=== PATIENT | male | born 1960 | race Caucasian/White ===

== ENCOUNTER 2016-12-04 13:47 | Emergency (ER) | payer BC ==
[2016-12-04 13:59] VITALS: BP 130/75
--- NOTE | 2016-12-04 14:32 | UC ---
Ear Complaint HPI - HPI Summary HPI Summary: FOUR DAYS OF LEFT EAR PAIN, AFTER CLEANING EAR WITH [employer]. NO FEVER. NO NECK PAIN. SWELLING TO (TRAGUS OF) LEFT EAR. - History of Current Complaint Chief Complaint: UCEar Stated Complaint: EAR INFECTION Time Seen by Provider: 12/04/16 14:08 Hx Obtained From: Patient Onset/Duration: Gradual Onset, Lasting Days, Still Present Severity Initially: Mild Severity Currently: Moderate Associated Signs/Symptoms: Positive: Swelling @ - TRAGUS RIGHT EAR - Allergies/Home Medications Allergies/Adverse Reactions: Allergies Allergy/AdvReac Type Severity Reaction Status Date / Time No Known Allergies Allergy Verified 12/04/16 13:59 PMH/Surg Hx/FS Hx/Imm Hx Previously Healthy: Yes - Surgical History Surgical History: Yes Surgery Procedure, Year, and Place: left knee cartilage - Family History Known Family History: Positive: Cardiac Disease - Social History Occupation: Employed Full-time Lives: With Family Alcohol Use: Occasionally Substance Use Type: None Smoking Status (MU): Heavy Every Day Tobacco Smoker Amount Used/How Often: 1 PPD Cessation Counseling: Patient Advised to Stop Review of Systems Constitutional: Negative Eyes: Negative ENT: Ear Ache - RIGHT Respiratory: Negative Cardiovascular: Negative Gastrointestinal: Negative Genitourinary: Negative Motor: Negative Neurovascular: Negative Musculoskeletal: Negative Neurological: Negative Psychological: Negative All Other Systems Reviewed And Are Negative: Yes Physical Exam Triage Information Reviewed: Yes Appearance: Well-Appearing, No Pain Distress, Well-Nourished Vital Signs: Initial Vital Signs Temp 97.3 F 12/04/16 13:55 Pulse 58 12/04/16 13:55 Resp 16 12/04/16 13:55 BP 130/75 12/04/16 13:55 Pulse Ox 100 12/04/16 13:55 Vital Signs Reviewed: Yes Eye Exam: Normal ENT: Positive: Hearing grossly normal, Pharynx normal, TM bulging, TM dull, Other: - LEFT EXTERNAL AUDITORY CANAL EDEMA; TENDER LEFT TRAGUS; NO TENDERNESS AT MASTOID PROCESS Dental Exam: Normal Neck exam: Normal Neck: Positive: Supple, Nontender, No Lymphadenopathy Respiratory Exam: Normal Respiratory: Positive: Chest non-tender, Lungs clear, Normal breath sounds, No respiratory distress Cardiovascular Exam: Normal Cardiovascular: Positive: RRR, No Murmur, Pulses Normal Abdominal Exam: Normal Musculoskeletal Exam: Normal Musculoskeletal: Positive: Strength Intact Neurological Exam: Normal Psychological Exam: Normal Skin Exam: Normal Ear Complaint Course/Dx - Differential Dx/Diagnosis Differential Diagnosis/HQI/PQRI: Cellulitis, Otitis Externa, Otitis Media, Perforated TM, URI Provider Diagnoses: LEFT OTITIS EXTERNA, TRAGAL CELLULITIS Discharge - Discharge Plan Condition: Stable Disposition: HOME Prescriptions: Amoxicillin/Clavulanate TAB* [Augmentin TAB 875*] 875 mg PO BID #20 tab Neomyc/Polym/HC 1% OTIC SUSP* [Cortisporin Otic Susp 1%*] 4 drop LEFT EAR QID # 1 btl Patient Education Materials: Otitis Externa (ED), Otitis Media (ED) Referrals: Yisel Montalvo NP [Primary Care Provider] -
== END 2016-12-04 14:27 | disposition home or self-care (01) ==
LOC: UCEAST 13:47
DX: H60.92 Unspecified otitis externa, left ear (principal); H60.12 Cellulitis of left external ear; Z72.0 Tobacco use
CPT/HCPCS: 99212; G0463

== ENCOUNTER 2017-04-11 19:34 | Emergency (ER) | payer BC ==
--- NOTE | 2017-04-11 20:31 | UC ---
Ear Complaint HPI - HPI Summary HPI Summary: 56 year old male presents with left ear pain. - History of Current Complaint Stated Complaint: LEFT EAR PAIN Time Seen by Provider: 04/11/17 20:31 Hx Obtained From: Patient Onset/Duration: Sudden Onset Severity Initially: Moderate Severity Currently: Moderate Pain Scale Used: 0-10 Numeric - 3 - Allergies/Home Medications Allergies/Adverse Reactions: Allergies Allergy/AdvReac Type Severity Reaction Status Date / Time No Known Allergies Allergy Verified 04/11/17 20:48 PMH/Surg Hx/FS Hx/Imm Hx Previously Healthy: Yes - Surgical History Surgical History: Yes Surgery Procedure, Year, and Place: left knee cartilage - Family History Known Family History: Positive: Cardiac Disease - Social History Alcohol Use: Occasionally Substance Use Type: None Smoking Status (MU): Heavy Every Day Tobacco Smoker Amount Used/How Often: 1 PPD Review of Systems Constitutional: Negative Skin: Negative Eyes: Negative ENT: Ear Ache Respiratory: Negative Cardiovascular: Negative Gastrointestinal: Negative Genitourinary: Negative Motor: Negative Neurovascular: Negative Musculoskeletal: Negative Neurological: Negative Psychological: Negative Is Patient Immunocompromised?: Yes All Other Systems Reviewed And Are Negative: Yes Physical Exam Triage Information Reviewed: Yes Vital Signs Reviewed: Yes Eye Exam: Normal ENT: Positive: Other - left ear exteranl canal erythema Dental Exam: Normal Neck exam: Normal Neck: Positive: 1 Respiratory Exam: Normal Cardiovascular Exam: Normal Abdominal Exam: Normal Musculoskeletal Exam: Normal Neurological Exam: Normal Psychological Exam: Normal Skin Exam: Normal Ear Complaint Course/Dx - Differential Dx/Diagnosis Provider Diagnoses: left otits externa Discharge - Discharge Plan Condition: Stable Disposition: HOME Prescriptions: Amoxicillin/Clavulanate TAB* [Augmentin TAB 875*] 875 mg PO BID #20 tab Ciproflox/Dexameth OTIC.SUSP* [Ciprodex OTIC.SUSP*] 1 drop LEFT EAR BID #1 btl Patient Education Materials: Otitis Externa (ED) Referrals: Yisel Montalvo NP [Primary Care Provider] -
[2017-04-11 20:49] VITALS: BP 126/76
== END 2017-04-11 21:18 | disposition home or self-care (01) ==
LOC: UCCORT 19:34
DX: H60.92 Unspecified otitis externa, left ear (principal); F17.210 Nicotine dependence, cigarettes, uncomplicated
CPT/HCPCS: 99212; G0463

== ENCOUNTER 2017-05-03 16:56 | Emergency (ER) | payer BC ==
--- NOTE | 2017-05-03 17:17 | UC ---
FLU HPI - HPI Summary HPI Summary: 56 year old male presents with complains of cough , chest congestion and fever. - History of Current Complaint Stated Complaint: FLU SYMPTOMS Time Seen by Provider: 05/03/17 17:16 Hx Obtained From: Patient Onset/Duration: Sudden Onset Severity Currently: Moderate Severity Initially: Moderate Associated Signs & Symptoms: Positive: Fever - Allergy/Home Medications Allergies/Adverse Reactions: Allergies Allergy/AdvReac Type Severity Reaction Status Date / Time No Known Allergies Allergy Verified 05/03/17 17:24 PMH/Surg Hx/FS Hx/Imm Hx - Surgical History Surgical History: Yes Surgery Procedure, Year, and Place: left knee cartilage - Family History Known Family History: Positive: Cardiac Disease - Social History Alcohol Use: Occasionally Substance Use Type: None Smoking Status (MU): Heavy Every Day Tobacco Smoker Type: Cigarettes Amount Used/How Often: 1 PPD - Immunization History Most Recent Influenza Vaccination: [id number] Review of Systems Constitutional: Negative Skin: Negative Eyes: Negative ENT: Sore Throat, Nasal Discharge, Sinus Congestion, Sinus Pain/Tenderness Respiratory: Cough Cardiovascular: Negative Gastrointestinal: Negative Genitourinary: Negative Motor: Negative Neurovascular: Negative Musculoskeletal: Negative Neurological: Negative Psychological: Negative All Other Systems Reviewed And Are Negative: Yes Physical Exam Triage Information Reviewed: Yes Vital Signs Reviewed: Yes Eye Exam: Normal ENT Exam: Normal ENT: Positive: Nasal congestion, Nasal drainage, Sinus tenderness Dental Exam: Normal Neck exam: Normal Neck: Positive: 1 Respiratory: Positive: Respiratory distress, Rhonchi, Wheezing Cardiovascular Exam: Normal Abdominal Exam: Normal Musculoskeletal Exam: Normal Neurological Exam: Normal Psychological Exam: Normal Skin Exam: Normal Flu Course/Dx - Differential Dx/Diagnosis Provider Diagnoses: bronchitis. wheezing Discharge - Discharge Plan Condition: Stable Disposition: HOME Prescriptions: Albuterol HFA INHALER* [Ventolin HFA Inhaler*] 1 puff INH Q6H PRN #1 mdi PRN Reason: Wheezing Azithromyxin YEIMI (NF) [Z-Yeimi (Zithromax) 250 mg tabs #6] 2 tab PO .TODAY, THEN 1 DAILY #6 tab Guaifenesin-Codeine [Cheratussin AC] 1 teasp PO Q8H PRN #120 ml MDD 15 ML PRN Reason: Cough Methylprednisolone [Medrol Dosepak 4 MG*] 4 mg PO .SEE YEIMI INSTRUCTION #21 tab Patient Education Materials: Acute Bronchitis (ED) Referrals: Yisel Montalvo, EDUCATION AND OUTREACH COORDINATOR [Primary Care Provider] -
[2017-05-03 17:22] VITALS: BP 127/88
[2017-05-03] MEDS ORDERED: Albuterol/Ipratropium NEB.SOL* Albuterol 2.5 MG/Ipratropium 0.5 MG 3 ML INH ONE (17:29)
[2017-05-03] MEDS ORDERED: predniSONE TAB* 20 MG PO ONE (17:29)
[2017-05-03] MEDS ORDERED: Azithromycin TAB* 250 MG PO ONE (18:04)
== END 2017-05-03 18:15 | disposition home or self-care (01) ==
LOC: UCCORT 16:56
DX: J40 Bronchitis, not specified as acute or chronic (principal); R06.2 Wheezing
CPT/HCPCS: 87502; 87651; 99213; A9270-GY; G0463; J7512

== ENCOUNTER 2017-06-04 19:34 | Emergency (ER) | payer BC ==
[2017-06-04 19:40] VITALS: BP 164/96
[2017-06-04] MEDS ORDERED: Ketorolac INJ* 60 MG/2 ML VIAL IM ONE (19:50)
--- NOTE | 2017-06-04 19:59 | UC ---
Truncal Trauma HPI - HPI Summary HPI Summary: Patient fell down and hit his back on the steps, pain in the lower left ribs and shoulder. - History Of Current Complaint Chief Complaint: UCBackPain Stated Complaint: PT FELL BACK/RIB PAIN LEFT SIDE Time Seen by Provider: 06/04/17 19:46 Hx Obtained From: Patient Onset/Duration: Sudden Onset, Lasting Minutes Onset Of Pain: Immediate Severity Initially: Severe Severity Currently: Severe Mechanism Of Injury: Blunt Trauma, Fall From A Standing Position Aggravating Factor(s): Movement, Deep Breathing, Cough Alleviating factor(s): Nothing Associated Signs And Symptoms: Positive: SOB - cant take a dedp breath - Allergies/Home Medications Allergies/Adverse Reactions: Allergies Allergy/AdvReac Type Severity Reaction Status Date / Time No Known Allergies Allergy Verified 06/04/17 19:39 Home Medications: Home Medications Linagliptin-Metformin HCl [Jentadueto] 1 tab PO DAILY 06/04/17 [History Confirmed 06/04/17] Pramipexole TAB* [Mirapex TAB*] 0.5 mg PO BEDTIME 06/04/17 [History Confirmed ] Simvastatin [Zocor 40 MG (NF)] 40 mg PO QPM 06/04/17 [History Confirmed 06/04/17 ] Terbinafine HCl [Lamisil] 250 mg PO BEDTIME 06/04/17 [History Confirmed 06/04/17 ] Zolpidem TAB* [Ambien TAB*] 5 mg PO BEDTIME PRN 06/04/17 [History Confirmed ] PMH/Surg Hx/FS Hx/Imm Hx Previously Healthy: Yes - Surgical History Surgical History: Yes Surgery Procedure, Year, and Place: left knee cartilage - Family History Known Family History: Positive: Cardiac Disease - Social History Alcohol Use: Occasionally Substance Use Type: None Smoking Status (MU): Heavy Every Day Tobacco Smoker Type: Cigarettes Amount Used/How Often: 1 PPD - Immunization History Most Recent Influenza Vaccination: [id number] Review of Systems Constitutional: Negative Skin: Negative Eyes: Negative ENT: Negative Respiratory: Negative Cardiovascular: Negative Gastrointestinal: Negative Genitourinary: Negative Motor: Negative Neurovascular: Negative Musculoskeletal: Arthralgia, Decreased ROM, Edema, Myalgia Neurological: Negative Psychological: Negative Is Patient Immunocompromised?: No All Other Systems Reviewed And Are Negative: Yes Physical Exam Triage Information Reviewed: Yes Appearance: Well-Appearing, Well-Nourished, Pain Distress Vital Signs: Initial Vital Signs Temp 94.9 F 06/04/17 19:37 Pulse 65 06/04/17 19:37 Resp 18 06/04/17 19:37 BP 164/96 06/04/17 19:37 Pulse Ox 97 06/04/17 19:37 Vital Signs Reviewed: Yes Eye Exam: Normal ENT Exam: Normal Dental Exam: Normal Neck exam: Normal Respiratory Exam: Normal Respiratory: Positive: Chest non-tender, Lungs clear, Normal breath sounds Cardiovascular Exam: Normal Cardiovascular: Positive: RRR, No Murmur, Pulses Normal Abdominal Exam: Normal Abdomen Description: Positive: Nontender, No Organomegaly, Soft Bowel Sounds: Positive: Present Musculoskeletal: Positive: Strength Intact, ROM Limited @ - due to pain in truck , Edema @ - pocket of edema in the lower left ribs Neurological Exam: Normal Psychological Exam: Normal Skin Exam: Normal Truncal Trauma Course/Dx - Course Course Of Treatment: Hx obtained, exam performed ,meds reviewed, toradol given, xray obtained, fractures of the 9th 10 and 11th ribs noted. pain meds given, needs close follow up with PCP, - Differential Dx/Diagnosis Differential Diagnosis/HQI/PQRI: Chest Wall Contusion Provider Diagnoses: fracture of the left 9th 10th and 11th ribs Discharge - Discharge Plan Condition: Stable Disposition: HOME Patient Education Materials: Rib Fracture (ED) Referrals: No Primary Care Phys,NOPCP [Primary Care Provider] - Additional Instructions: 1. Take the pain medication as needed for pain 2. Ice to the area today, tomorrow start heat. 3. gentle stretch of the area multiple times a day 4. Take deep breaths frequently throughout the day. 5. Use the incentive spirometer hourly 6. If you develop any cough, SOB or respiratory issues seek medical attention.
--- NOTE | 2017-06-04 20:19 | RAD ---
HISTORY: Fall, left-sided pain COMPARISONS: None relevant VIEWS: 7, Frontal view of the chest with frontal and oblique views of the left hemithorax FINDINGS: There are minimally displaced fractures of the left ninth, 10th, and 11th ribs. There is no appreciable pneumothorax. IMPRESSION: FRACTURES OF THE LEFT NINTH, 10TH, 11TH RIBS. NO APPRECIABLE PNEUMOTHORAX.
[2017-06-04] MEDS ORDERED: HYDROcodone/ACETAMIN 5-325 MG* 1 TAB PO ONE (20:44)
== END 2017-06-04 20:59 | disposition home or self-care (01) ==
LOC: UCCORT 19:34
DX: S22.49XA Multiple fractures of ribs, unspecified side, initial encounter for closed fracture (principal); W10.9XXA Fall (on) (from) unspecified stairs and steps, initial encounter; Y93.9 Activity, unspecified; Y92.9 Unspecified place or not applicable; Z72.0 Tobacco use
CPT/HCPCS: 96372; 99212; G0463; J1885

== ENCOUNTER 2017-08-04 15:25 | Emergency (ER) | payer BC ==
[2017-08-04 17:08] VITALS: BP 142/79
--- NOTE | 2017-08-04 18:26 | UC ---
Respiratory Complaint HPI - HPI Summary HPI Summary: 57 year old male with cough for 2 weeks He is a smoker. No fever. Had recently and had neg xray but had broken rib. Had similar Sx a few months ago and did not address it and needed steroids and abx. Not at that point at this time but feels it will not go away on its own. took z pack and it worked great and requesting that at this time still smoking about 1 ppd. not using PANCHITO more than normal./ No CP. no weight loss. no night sweats. no n/v/d. No WOOTEN - History of Current Complaint Chief Complaint: UCRespiratory Stated Complaint: COUGH Time Seen by Provider: 08/04/17 18:24 Hx Obtained From: Patient Onset/Duration: Gradual Onset Timing: Constant Severity Initially: Mild Severity Currently: Moderate Pain Intensity: 0 Character: Cough: Productive Aggravating Factors: Nothing Alleviating Factors: Nothing - Allergies/Home Medications Allergies/Adverse Reactions: Allergies Allergy/AdvReac Type Severity Reaction Status Date / Time No Known Allergies Allergy Verified 08/04/17 17:08 PMH/Surg Hx/FS Hx/Imm Hx Previously Healthy: Yes Endocrine History: Diabetes, Dyslipidemia Cardiovascular History: Hypertension Respiratory History: Bronchitis GI/ History: Gastroesophageal Reflux - Surgical History Surgical History: Yes Surgery Procedure, Year, and Place: left knee cartilage - Family History Known Family History: Positive: Cardiac Disease - Social History Occupation: Employed Full-time - [employer] [place] Alcohol Use: Occasionally Substance Use Type: None Smoking Status (MU): Heavy Every Day Tobacco Smoker Type: Cigarettes Amount Used/How Often: 1 PPD Cessation Counseling: Patient Advised to Stop - Immunization History Most Recent Influenza Vaccination: [id number] Review of Systems Constitutional: Fatigue ENT: Nasal Discharge - post nasal drip Respiratory: Cough Is Patient Immunocompromised?: No All Other Systems Reviewed And Are Negative: Yes Physical Exam Triage Information Reviewed: Yes Appearance: Well-Appearing, No Pain Distress, Well-Nourished Vital Signs: Initial Vital Signs Temp 94.7 F 08/04/17 17:06 Pulse 67 08/04/17 17:06 Resp 14 08/04/17 17:06 BP 142/79 08/04/17 17:06 Pulse Ox 98 08/04/17 17:06 Vital Signs Reviewed: Yes Eye Exam: Normal ENT Exam: Normal Dental Exam: Normal Neck exam: Normal Neck: Positive: 1 Respiratory Exam: Normal Respiratory: Positive: Chest non-tender, No respiratory distress, No accessory muscle use, Wheezing - RUL mild expiratory wheeze. Negative: Respiratory distress Cardiovascular Exam: Normal Musculoskeletal Exam: Normal Neurological Exam: Normal Psychological Exam: Normal Skin Exam: Normal UC Diagnostic Evaluation - Laboratory O2 Sat by Pulse Oximetry: 98 Respiratory Course/Dx - Course Course Of Treatment: treat at this time with z pack as it worked well previously. he is aware of Se. advised o quit smoking. f/u with PCP for PFTs . - Differential Dx/Diagnosis Differential Diagnosis/HQI/PQRI: Bronchitis, Lower Resp Infection Provider Diagnoses: Bronchitis. Smoker Discharge - Sign-Out/Discharge Documenting (check all that apply): Discharge - Discharge Plan Condition: Good Disposition: HOME Prescriptions: Azithromyxin YEIMI (NF) [Z-Yeimi (Zithromax) 250 mg tabs #6] 2 tab PO .TODAY, THEN 1 DAILY #6 tab Patient Education Materials: Acute Bronchitis (ED) Referrals: Yisel Montalvo, ACCOUNT SUPPORT REP [Primary Care Provider] - 4 Days (if needed ) Additional Instructions: [place] Quitting Smoking ! - Billing Disposition and Condition Condition: GOOD Disposition: HOME
== END 2017-08-04 18:43 | disposition home or self-care (01) ==
LOC: UCCORT 15:25
DX: J40 Bronchitis, not specified as acute or chronic (principal); F17.210 Nicotine dependence, cigarettes, uncomplicated; E11.9 Type 2 diabetes mellitus without complications; I10 Essential (primary) hypertension
CPT/HCPCS: 99212; G0463

== ENCOUNTER 2018-02-21 07:01 | Emergency (ER) | payer BC ==
[2018-02-21 07:21] VITALS: BP 147/83
--- NOTE | 2018-02-21 07:31 | UC ---
Respiratory Complaint HPI - HPI Summary HPI Summary: cough x 3 days cough is productive, yellow / green sputum , worse with deep breathing , better with rest + nasal congestion , wheezing, no fever, no chills, no chest pain , no sob - History of Current Complaint Chief Complaint: UCRespiratory Stated Complaint: UPPER RESPIRATORY Time Seen by Provider: 02/21/18 07:17 Hx Obtained From: Patient Onset/Duration: Gradual Onset, Lasting Days - 3, Still Present Timing: Constant Severity Initially: Moderate Severity Currently: Moderate Pain Intensity: 0 Character: Cough: Productive Aggravating Factors: Deep Breaths Alleviating Factors: Nothing Associated Signs And Symptoms: Positive: Wheezing, URI, Nasal Congestion. Negative: Dyspnea, Fever, Chills, Pleuritic Chest Pain, Hemoptysis, Dizziness, Calf Pain, Calf Swelling, Hoarseness, Sinus Discomfort - Allergies/Home Medications Allergies/Adverse Reactions: Allergies Allergy/AdvReac Type Severity Reaction Status Date / Time No Known Allergies Allergy Verified 02/21/18 07:18 PMH/Surg Hx/FS Hx/Imm Hx Endocrine History: Diabetes - Surgical History Surgical History: Yes Surgery Procedure, Year, and Place: left knee cartilage - Family History Known Family History: Positive: Cardiac Disease - Social History Alcohol Use: Occasionally Substance Use Type: None Smoking Status (MU): Heavy Every Day Tobacco Smoker Type: Cigarettes Amount Used/How Often: 1 PPD - Immunization History Most Recent Influenza Vaccination: [id number] Review of Systems Constitutional: Negative Skin: Negative Eyes: Negative ENT: Sinus Pain/Tenderness Respiratory: Cough Cardiovascular: Negative Gastrointestinal: Negative Is Patient Immunocompromised?: No All Other Systems Reviewed And Are Negative: Yes Physical Exam Triage Information Reviewed: Yes Appearance: Well-Appearing, No Pain Distress, Well-Nourished Vital Signs: Initial Vital Signs Temp 97.7 F 02/21/18 07:13 Pulse 92 02/21/18 07:13 Resp 22 02/21/18 07:13 BP 147/83 02/21/18 07:13 Pulse Ox 95 02/21/18 07:13 Vital Signs Reviewed: Yes Eye Exam: Normal Eyes: Positive: Conjunctiva Clear ENT: Positive: Normal ENT inspection, Hearing grossly normal, Pharynx normal, Nasal drainage Neck exam: Normal Neck: Positive: Supple, Nontender, No Lymphadenopathy Respiratory: Positive: Chest non-tender, Lungs clear, Normal breath sounds, No respiratory distress, No accessory muscle use, Decreased breath sounds - right lungs, Wheezing Cardiovascular: Positive: RRR, No Murmur, Pulses Normal Abdominal Exam: Normal Skin Exam: Normal UC Diagnostic Evaluation - Laboratory O2 Sat by Pulse Oximetry: 95 Diagnostic Studies Comment: chest xray : IMPRESSION: COPD. NO ACTIVE CARDIOPULMONARY DISEASE. Respiratory Course/Dx - Differential Dx/Diagnosis Provider Diagnoses: acute bronchitis Discharge - Sign-Out/Discharge Documenting (check all that apply): Patient Departure All imaging exams completed and their final reports reviewed: Yes - Discharge Plan Condition: Stable Disposition: HOME Prescriptions: Albuterol HFA INHALER* [Ventolin HFA Inhaler*] 2 puff INH Q6H PRN #1 mdi PRN Reason: Wheezing DOXYcycline CAP(*) [DOXYcycline 100MG CAP(*)] 100 mg PO BID #20 cap predniSONE [Prednisone 20 MG TAB] 20 mg PO DAILY WITH MEAL #5 tablet Patient Education Materials: Acute Bronchitis (ED) Referrals: Yisel Montalvo ROLL ON WORKER [Primary Care Provider] - 5 Days - Billing Disposition and Condition Condition: STABLE Disposition: Home
--- NOTE | 2018-02-21 07:57 | RAD ---
HISTORY: cough COMPARISONS: June 11, 2017 VIEWS: 4: Frontal dual-energy and lateral views of the chest. FINDINGS: CARDIOMEDIASTINAL SILHOUETTE: The cardiomediastinal silhouette is normal. ELLIE: The ellie are normal. PLEURA: The costophrenic angles are sharp. No pleural abnormalities are noted. LUNG PARENCHYMA: There is hyperinflation with flattening of the diaphragm and expansion of the AP diameter of the chest. Bilateral nipple shadows are noted. ABDOMEN: The upper abdomen is clear. There is no subphrenic gas. BONES AND SOFT TISSUES: Degenerative changes are noted along the spine. OTHER: None. IMPRESSION: COPD. NO ACTIVE CARDIOPULMONARY DISEASE.
== END 2018-02-21 07:51 | disposition home or self-care (01) ==
LOC: UCCORT 07:01
DX: J20.9 Acute bronchitis, unspecified (principal); E11.9 Type 2 diabetes mellitus without complications; F17.210 Nicotine dependence, cigarettes, uncomplicated
CPT/HCPCS: 71046; 99212; G0463

== ENCOUNTER 2018-05-11 15:25 | Emergency (ER) | payer BC ==
[2018-05-11 16:23] VITALS: BP 133/77
[2018-05-11] MEDS ORDERED: Azithromycin TAB* 250 MG PO ONE (16:37)
--- NOTE | 2018-05-11 17:15 | UC ---
Respiratory Complaint HPI - HPI Summary HPI Summary: Pt presents with c/o cough and generalized malaise X 4 days. Pt has hx of bronchitis is a heavy every day smoker. - History of Current Complaint Chief Complaint: UCRespiratory Stated Complaint: COUGH Time Seen by Provider: 05/11/18 16:34 Hx Obtained From: Patient Onset/Duration: Sudden Onset, Lasting Days, Still Present, Worse Since - onset Timing: Constant Severity Initially: Mild Severity Currently: Moderate Pain Intensity: 0 Pain Scale Used: 0-10 Numeric Character: Cough: Productive Aggravating Factors: Exertion, Deep Breaths, Recumbent Position Alleviating Factors: Nothing Associated Signs And Symptoms: Positive: Wheezing, URI, Nasal Congestion - Risk Factors Pulmonary Embolism Risk Factors: Smoking Cardiac Risk Factors: Smoking Pseudomonas Risk Factors: Chronic Lung Disease Tuberculosis Risk Factors: Smoking - Allergies/Home Medications Allergies/Adverse Reactions: Allergies Allergy/AdvReac Type Severity Reaction Status Date / Time No Known Allergies Allergy Verified 02/21/18 07:18 Home Medications: Home Medications Cetirizine* [ZyrTEC 10 MG TAB*] 20 mg PO ONCE 05/11/18 [History Confirmed ] PMH/Surg Hx/FS Hx/Imm Hx Previously Healthy: Yes Cardiovascular History: Cardiac Disease Respiratory History: COPD, Asthma, Bronchitis - Surgical History Surgical History: Yes Surgery Procedure, Year, and Place: left knee cartilage - Family History Known Family History: Positive: Cardiac Disease - Social History Occupation: Employed Full-time Lives: With Family Alcohol Use: Occasionally Substance Use Type: None Smoking Status (MU): Heavy Every Day Tobacco Smoker Type: Cigarettes Amount Used/How Often: 1 PPD Have You Smoked in the Last Year: Yes - Immunization History Most Recent Influenza Vaccination: 1826-2983 Vaccination Up to Date: Yes Review of Systems All Other Systems Reviewed And Are Negative: Yes Constitutional: Positive: Fatigue Skin: Positive: Negative Eyes: Positive: Negative ENT: Positive: Nasal Discharge, Sinus Congestion Respiratory: Positive: Shortness Of Breath, Cough Cardiovascular: Positive: Negative Gastrointestinal: Positive: Negative Genitourinary: Positive: Negative Motor: Positive: Negative Neurovascular: Positive: Negative Musculoskeletal: Positive: Negative Neurological: Positive: Negative Psychological: Positive: Negative Is Patient Immunocompromised?: No Physical Exam Triage Information Reviewed: Yes Appearance: Ill-Appearing Vital Signs: Initial Vital Signs Temp 97.7 F 05/11/18 16:18 Pulse 69 05/11/18 16:18 Resp 16 05/11/18 16:18 BP 133/77 05/11/18 16:18 Pulse Ox 98 05/11/18 16:18 Vital Signs Reviewed: Yes Eye Exam: Normal ENT: Positive: Nasal congestion Dental Exam: Normal Neck exam: Normal Respiratory: Positive: Decreased breath sounds, Wheezing Cardiovascular Exam: Normal Musculoskeletal Exam: Normal Neurological Exam: Normal Psychological Exam: Normal Skin Exam: Normal UC Diagnostic Evaluation - Laboratory O2 Sat by Pulse Oximetry: 98 Respiratory Course/Dx - Differential Dx/Diagnosis Differential Diagnosis/HQI/PQRI: Bronchitis, Exacerbation Of COPD Provider Diagnosis: Bronchitis Discharge - Sign-Out/Discharge Documenting (check all that apply): Patient Departure All imaging exams completed and their final reports reviewed: No Studies - Discharge Plan Condition: Stable Disposition: HOME Prescriptions: Azithromycin TAB* [Zithromax TAB (Z-YEIMI) 250 mg #6 tabs] 250 mg PO DAILY #4 tab predniSONE TAB* [Deltasone 10 MG TAB*] 30 mg PO DAILY #12 tab Patient Education Materials: Acute Bronchitis (ED), Wheezing (ED) Referrals: Yisel Montalvo NP [Primary Care Provider] - If Needed - Billing Disposition and Condition Condition: STABLE Disposition: Home
== END 2018-05-11 16:45 | disposition home or self-care (01) ==
LOC: UCCORT 15:25
DX: J40 Bronchitis, not specified as acute or chronic (principal); F17.210 Nicotine dependence, cigarettes, uncomplicated
CPT/HCPCS: 99212; A9270-GY; G0463